=== PATIENT | female | born 1955 | race Caucasian/White ===

== ENCOUNTER 2016-05-10 19:58 | Inpatient (IN) | payer MEDICARE, SELFPAY ==
[2016-05-10 20:50] VITALS: BMI 43.4
[2016-05-10] MEDS ORDERED: ONDANSETRON HCL 4 MG/2 ML VIAL IV ONE (21:09)
[2016-05-10] MEDS ORDERED: Vancomycin HCl 0 MG in D5W 500 ML IV ONE (21:09)
[2016-05-10] MEDS ORDERED: MORPHINE 4 MG/ML INJECTION IV ONE (21:09)
[2016-05-10 21:10] LABS: AUTOMATED BASOPHIL 0.8 % (0-2); AUTOMATED EOSINOPHIL 1.6 % (0-5); AUTOMATED LYMPH 24.5 % (17-44); AUTOMATED MONOCYTE 10.3 % (3-10); AUTOMATED NEUTROPHIL 62.8 % (45-76); MPV 7.5 fL (7.4-10.4)
--- NOTE | 2016-05-10 21:21 | EDPRACDOC ---
- General Information Chief Complaint: Lower Leg Pain Stated Complaint: CELLULITIS LT LEG Time Seen by Provider: 05/10/16 21:08 Information Source: Patient Mode Of Arrival: Car Home Medications: Home Medications Albuterol Sulfate [Proair Hfa] 2 puff INH Q6H PRN 04/20/13 Furosemide [Lasix] 40 mg PO DAILY 03/30/14 Pantoprazole Sodium [Protonix] 40 mg PO BID 03/30/14 Amlodipine [Norvasc] 5 mg PO DAILY 07/07/14 Valsartan [Diovan] 160 mg PO DAILY 07/07/14 Escitalopram Oxalate [Lexapro] 10 mg PO DAILY 05/26/15 Hydrocodone/Acetaminophen [Hydrocodon-Acetaminoph 7.5-325] 1 tab PO BID PRN Lorazepam [Ativan] 1 mg PO HS PRN 05/26/15 Mometasone Furoate [Asmanex Hfa] 13 gm INH DAILY 05/26/15 Potassium Chloride 40 meq PO BID 05/26/15 Spironolactone [Aldactone] 50 mg PO DAILY 06/29/15 Dextroamphetamine/Amphetamine [Adderall Xr 20 mg Capsule] 20 mg PO DAILY Hydrocodone/Acetaminophen [Lortab 5-325 mg Tablet] 1 each PO Q4H PRN #15 tablet 05/09/16 Lipitor Unknown Dose 1 tab PO DAILY 05/09/16 Meloxicam [Mobic] 7.5 mg PO BID 05/09/16 Sulfamethoxazole/Trimethoprim [Bactrim Ds Tablet] 1 tab PO BID #14 tab 05/09/16 Allergies/Adverse Reactions: Allergies Allergy/AdvReac Type Severity Reaction Status Date / Time adhesive Allergy Rash-Locali Verified 05/10/16 20:50 zed nabumetone [From Relafen] Allergy Rash-Genera Verified 05/10/16 20:50 lized adhesive tape Allergy Rash-Genera Uncoded 05/10/16 20:50 lized - History of Present Illness Onset: YESTERDAY HPI: PT WAS SEEN HERE BY ME YESTERDAY. THE PT WAS DX'D WITH CELLULITIS. SHE RECEIVED VANCOMYCIN IV AND HAD LABS AND BLOOD CX DONE. THE PT WAS DOING WELL AND WAS D/C'D. PT SAID THAT SHE IS HAVING MORE REDNESS, PAIN, AND SWELLING. SHE SAID THE SWELLING IS GOING UP TO HER "MONKEY." Mechanism: Reports: None History of: Reports: None Severity: Reports: Moderate Able to Bear Weight: Limited Associated Signs & Symptoms: Reports: Swelling Pain In: Reports: Leg ED Past Medical History - Patient Medical History Cardiac History: Reports: Coronary Artery Disease (MILD), Hypertension, Congestive Heart Failure, Heart Attack (years ago), Cardiac Catheterization ( 2000), Hypercholesterolemia Respiratory History: Reports: Asthma, COPD GI/ History: Reports: Gastroesophageal Reflux Musculoskeletal History: Reports: Arthritis, Osteoarthritis Psychological History: Reports: Depression, Anxiety Systemic History: Reports: Cancer (ovarian), Diabetes (borderline) Surgical History: Reports: Hysterectomy, Cardiac Catheterization (2000), Hernia Surgery (left lower abd), Tonsillectomy/Adnoidectomy Date of Last Radiation Treatment: NA Date of Last Chemotherapy Date: NA - Family Medical History Reports: Hypertension (Mother,Father,Sister,Brothers), Diabetes (Mother,Father, Sister), Cancer (Father,Mother,Brother,Sisters), Stroke, Cardiac Disorders ( Father,Brother,Sister) - Social Medical History Smoking Status: Never smoker ETOH: None Substance Abuse: None Lives In: Home EDM Review of Systems - Review of Systems ROS Negative Except as Marked: Yes All systems reviewed and were negative except as marked Integumentary: Other (REDNESS TO LEFT LEG) - Physical Exam Constitutional: Alert (Awake), No apparent distress Oriented to: Time, Person, Place Last recorded Vital Signs: Last Vital Signs Temp 99.0 F 05/10/16 20:00 Pulse 110 05/10/16 20:00 Resp 20 05/10/16 20:00 BP 137/62 05/10/16 20:00 Pulse Ox 94 05/10/16 20:00 Oxygen Pulse Oxygen Saturation 94 O2 Device Room Air Oxygen Flow Rate Fraction of Inspired Oxygen ( FIO2) - HEENT Head: Normal ( normocephalic) Eye Exam: Normal (PERRL, EOMI, Sclera white) Oropharynx: Normal (Pharynx:Moist without exudate,Gums-no swelling) ENT EAC: Normal TMJ: Normal Nose: No Symptoms Reported (septum midline) Neck: Normal (FROM, trachea at midline) - Respiratory/Cardiovascular Respiratory: Normal - CTA Cardiovascular: Tachycardia - GI Auscultation: Normal (NABS) Palpation: Normal (Soft,No rebound or guarding, non distended) Tenderness: Non tender Davies's Sign: Negative - Musculoskeletal Back: Normal Extremities: Other (LLE REDNESS AND SWELLING WORSE THAN YESTERDAY. GROIN LAD ON LEFT) - Integumentary Skin: Normal Lymphatics: Adenopathy, Lymphangitis - Neurologic Memory Impaired: Normal Motor Function: Normal (Normal tone, Pulses 2+ No cyanosis or edema, FROM) Cranial Nerve: Normal (CN II-X11 intact sensation, strength 5/5) Cerebellar: Normal Mood Description: Normal Perception: Normal - Results 05/10/16 20:56 05/10/16 20:56 WBC 11.0 xk/uL (3.8-10.8) H 05/10/16 20:56 RBC 4.73 xM/uL (4.20-5.40) 05/10/16 20:56 Hgb 14.4 g/dL (12.0-16.0) 05/10/16 20:56 Hct 42.5 % (36-47) 05/10/16 20:56 MCV 90 fL (81-99) 05/10/16 20:56 MCH 30.5 pg (27-32) 05/10/16 20:56 MCHC 33.9 g/dl (33-36) 05/10/16 20:56 RDW 13.3 % (11.5-14.5) 05/10/16 20:56 Plt Count 268 xk/uL (130-400) 05/10/16 20:56 MPV 7.5 fL (7.4-10.4) 05/10/16 20:56 Neut % (Auto) 62.8 % (45-76) 05/10/16 20:56 Lymph % (Auto) 24.5 % (17-44) 05/10/16 20:56 Dickson % (Auto) 10.3 % (3-10) H 05/10/16 20:56 Eos % (Auto) 1.6 % (0-5) 05/10/16 20:56 Baso % (Auto) 0.8 % (0-2) 05/10/16 20:56 Absolute Neuts (auto) 6.82 xk/uL (1.7-8.2) 05/10/16 20:56 Absolute Lymphs (auto) 2.64 xk/uL (0.65-4.75) 05/10/16 20:56 Lab Results 05/10/16 20:56 WBC 11.0 H RBC 4.73 Hgb 14.4 Hct 42.5 MCV 90 MCH 30.5 MCHC 33.9 RDW 13.3 Plt Count 268 MPV 7.5 Neut % (Auto) 62.8 Lymph % (Auto) 24.5 Dickson % (Auto) 10.3 H Eos % (Auto) 1.6 Baso % (Auto) 0.8 Absolute Neuts (auto) 6.82 Absolute Lymphs (auto) 2.64 - EKG EKG #1 EKG Time: 22:25 -: Yes EKG interpreted by me Rate: bpm: 97 [place]: Normal Rhythm: NSR Block: None Hypertrophy: None ST: Normal - Departure Yes I personally saw and evaluated the patient. Disposition: Admit IP To This Hospital Condition: Fair Final Diagnosis: Cellulitis of left lower extremity, Failure of outpatient treatment, Poorly controlled type 2 diabetes mellitus Instructions: Managing Diabetes During Sick Days (ED), Diabetes and Exercise Education/Counseling Given To: Patient Education/Counseling Given Regarding: Diagnosis, Treatment Referrals: Queta Shi MD [Primary Care Provider] - One Week Prescriptions: No Action Albuterol Sulfate [Proair Hfa] 2 puff INH Q6H PRN PRN Reason: Shortness Of Breath Furosemide [Lasix] 40 mg PO DAILY Pantoprazole Sodium [Protonix] 40 mg PO BID Valsartan [Diovan] 160 mg PO DAILY Amlodipine [Norvasc] 5 mg PO DAILY Potassium Chloride 40 meq PO BID Lorazepam [Ativan] 1 mg PO HS PRN PRN Reason: Sleep Or Insomnia Mometasone Furoate [Asmanex Hfa] 13 gm INH DAILY Escitalopram Oxalate [Lexapro] 10 mg PO DAILY Hydrocodone/Acetaminophen [Hydrocodon-Acetaminoph 7.5-325] 1 tab PO BID PRN PRN Reason: Pain Spironolactone [Aldactone] 50 mg PO DAILY Meloxicam [Mobic] 7.5 mg PO BID Dextroamphetamine/Amphetamine [Adderall Xr 20 mg Capsule] 20 mg PO DAILY Lipitor Unknown Dose 1 tab PO DAILY Hydrocodone/Acetaminophen [Lortab 5-325 mg Tablet] 1 each PO Q4H PRN #15 tablet PRN Reason: Pain Sulfamethoxazole/Trimethoprim [Bactrim Ds Tablet] 1 tab PO BID #14 tab Forms: Patient Discharge Instructions, ED Discharge Instructions Decision to Admit Time: 22:28 Decision to admit date: 05/10/16 Decision to admit: from ED - Physician Consulted Hospitalist Provider Called: Treasure Hightower
[2016-05-10 21:26] LABS: BLOOD UREA NITROGEN 15 MG/DL (7-17); CALCIUM 9.2 MG/DL (8.4-10.2); CALCULATED OSMOLALITY 268 MOs/Kg (270-290); CHLORIDE 102 mEq/L (98-107); GLUCOSE 120 mg/dL (70-99); SODIUM LEVEL 138 mEq/L (137-146); TOTAL PROTEIN 7.9 G/DL (6.3-8.2)
[2016-05-10] MEDS ORDERED: ACETAMINOPHEN PO PRN (22:31)
[2016-05-10] MEDS ORDERED: [UNRECOGNIZED DRUG - OTHER] PO PRN (22:31)
[2016-05-10] MEDS ORDERED: ALBUTEROL 6.7 GM MDI INH PRN (22:31)
[2016-05-10] MEDS ORDERED: LORAZEPAM 1 MG TAB PO PRN (22:31)
[2016-05-10] MEDS ORDERED: HYDROCODONE PO PRN (22:31)
[2016-05-10] MEDS ORDERED: IBUPROFEN 400 MG TAB PO PRN (22:34)
[2016-05-10] MEDS ORDERED: SODIUM CHLORIDE 0.9% 3 ML FLUSH FLUSH PRN (22:34)
[2016-05-10] MEDS ORDERED: ACETAMINOPHEN 325 MG/TAB TABLET PO PRN (22:34)
[2016-05-10] MEDS ORDERED: OXYCODONE HCL 5 MG TABLET PO PRN (22:34)
[2016-05-10] MEDS ORDERED: MAGNESIUM HYDROXIDE 30 ML BOTTLE PO PRN (22:34)
[2016-05-10] MEDS ORDERED: ONDANSETRON HCL 4 MG/2 ML VIAL IV PRN (22:34)
[2016-05-10] MEDS ORDERED: Aluminum;Magnesium;Simethicone 30 ML UDC PO PRN (22:34)
[2016-05-10] MEDS ORDERED: DEXTROSE 25 GM/50 ML PFS IV PRN (22:55)
[2016-05-10] MEDS ORDERED: GLUCOSE (ORAL GEL) 15 GM TUBE PO PRN (22:55)
[2016-05-10] MEDS ORDERED: GLUCAGON 1 MG VIAL SQ PRN (22:55)
--- NOTE | 2016-05-10 22:56 | DIRPT ---
CLINICAL DATA: Left lower extremity swelling for 2 days EXAM: Left LOWER EXTREMITY VENOUS DOPPLER ULTRASOUND TECHNIQUE: Virk-scale sonography with graded compression, as well as color Doppler and duplex ultrasound were performed to evaluate the lower extremity deep venous systems from the level of the common femoral vein and including the common femoral, femoral, profunda femoral, popliteal and calf veins including the posterior tibial, peroneal and gastrocnemius veins when visible. The superficial great saphenous vein was also interrogated. Spectral Doppler was utilized to evaluate flow at rest and with distal augmentation maneuvers in the common femoral, femoral and popliteal veins. COMPARISON: None. FINDINGS: Contralateral Common Femoral Vein: Respiratory phasicity is normal and symmetric with the symptomatic side. No evidence of thrombus. Normal compressibility. Common Femoral Vein: No evidence of thrombus. Saphenofemoral Junction: No evidence of thrombus. Profunda Femoral Vein: No evidence of thrombus. Femoral Vein: No evidence of thrombus. Popliteal Vein: No evidence of thrombus. Calf Veins: No evidence of thrombus. Subcutaneous bands of edema at the hollingsworth. IMPRESSION: No evidence of left lower extremity DVT. Electronically Signed By: Avery Carvalho M.D. On: 05/10/2016 22:53
[2016-05-10] MEDS ORDERED: Vancomycin HCl 0 MG in D5W 500 ML IV SCH (23:00)
[2016-05-10] MEDS ORDERED: ENOXAPARIN 40 MG/0.4 ML PFS SQ SCH (23:00)
[2016-05-11 00:16] LABS: LEUKOCYTES/URINE NEG (NEGATIVE); NITRITE/URINE NEG (NEGATIVE); URINE OCCULT BLOOD NEG (NEG/TRACE)
[2016-05-11] MEDS: Hydrocod 7.5mg-Acetamin 325 mg/15 ml liquid PO PRN ×3 (00:30→23:32)
[2016-05-11] MEDS: NS/KCl 20 mEq 1,000 ML IV SCH ×2 (00:31→12:56)
[2016-05-11] MEDS ORDERED: Vaccine Screening Complete SCH (01:00)
[2016-05-11] MEDS: REGULAR INSULIN 100 UNITS/ML - 3 ML VIAL SQ SCH ×4 (05:04→20:19)
[2016-05-11] MEDS: SODIUM CHLORIDE 0.9% 3 ML FLUSH FLUSH SCH ×2 (05:04→18:24)
[2016-05-11] MEDS: PANTOPRAZOLE 40 MG TAB PO SCH ×2 (05:07→18:24)
[2016-05-11] MEDS ORDERED: CEFAZOLIN 1 GM in D5W 100 ML IV SCH (07:00)
[2016-05-11 07:41] LABS: AUTOMATED BASOPHIL 0.9 % (0-2); AUTOMATED EOSINOPHIL 2.4 % (0-5); AUTOMATED LYMPH 31.1 % (17-44); AUTOMATED MONOCYTE 11.2 % (3-10); AUTOMATED NEUTROPHIL 54.4 % (45-76); MPV 7.6 fL (7.4-10.4)
[2016-05-11 08:00] LABS: BLOOD UREA NITROGEN 13 MG/DL (7-17); CALCIUM 8.5 MG/DL (8.4-10.2); CALCULATED OSMOLALITY 264 MOs/Kg (270-290); CHLORIDE 103 mEq/L (98-107); GLUCOSE 105 mg/dL (70-99); SODIUM LEVEL 137 mEq/L (137-146)
[2016-05-11] MEDS: AMLODIPINE 5 MG TAB PO SCH (08:03)
[2016-05-11] MEDS: FUROSEMIDE 40 MG TAB PO SCH (08:03)
[2016-05-11] MEDS: MELOXICAM 7.5 MG TAB PO SCH ×2 (08:03→20:05)
[2016-05-11] MEDS: SPIRONOLACTONE 50 MG TAB PO SCH (08:03)
[2016-05-11] MEDS: VALSARTAN 160 MG TAB PO SCH (08:03)
[2016-05-11] MEDS: ESCITALOPRAM OXALATE 10 MG TAB PO SCH (08:04)
[2016-05-11] MEDS: Cefazolin 1gm/50 ml D5W 1 GM/50 ML RTU IV SCH ×3 (08:15→20:05)
--- NOTE | 2016-05-11 08:26 | HISTPHYS ---
- Chief Complaint PT C/O CELLULITIS ON L LOWER LEG. WAS IN ED LAST NIGHT FOR SAME THING. STATES REDNESS HAS GOTTEN WORSE TODAY. PT IS TAKING BACTRIM - History of Present Illness 60-year-old female history of diabetes presented to the ER last night complaining of cellulitis. She was given a dose of vancomycin and oral medications and discharged home. Today she had pain in her left leg and the erythema increased to the point were she could not take it anymore and she presented to the emergency department. She was evaluated with a lower extremity Doppler and that was negative for deep venous thrombosis. She was then referred to me for further evaluation and management of cellulitis which has failed outpatient therapy. She states the leg is very painful she is unable to stand on it she states that the erythema developed suddenly yesterday at about 4:30 p.m. and she had no previous warning. - Medical History Cardiac History: Reports: Coronary Artery Disease (MILD), Hypertension, Congestive Heart Failure, Heart Attack (years ago), Cardiac Catheterization ( 2000), Hypercholesterolemia Respiratory History: Reports: Asthma, COPD GI/ History: Reports: Gastroesophageal Reflux Musculoskeletal History: Reports: Arthritis, Osteoarthritis Systemic History: Reports: Cancer (ovarian), Diabetes (borderline) Psychological History: Reports: Depression, Anxiety - Surgical History Reports: Hysterectomy, Cardiac Catheterization (2000), Hernia Surgery (left lower abd), Tonsillectomy/Adnoidectomy - Medictions/Allergies Allergies adhesive Allergy (Verified 05/10/16 20:50) Rash-Localized nabumetone [From Relafen] Allergy (Verified 05/10/16 20:50) Rash-Generalized adhesive tape Allergy (Uncoded 05/10/16 20:50) Rash-Generalized Home Medications Albuterol Sulfate [Proair Hfa] 2 puff INH Q6H PRN 04/20/13 Furosemide [Lasix] 40 mg PO DAILY 03/30/14 Pantoprazole Sodium [Protonix] 40 mg PO BID 03/30/14 Amlodipine [Norvasc] 5 mg PO DAILY 07/07/14 Valsartan [Diovan] 160 mg PO DAILY 07/07/14 Escitalopram Oxalate [Lexapro] 10 mg PO DAILY 05/26/15 Hydrocodone/Acetaminophen [Hydrocodon-Acetaminoph 7.5-325] 1 tab PO BID PRN Lorazepam [Ativan] 1 mg PO HS PRN 05/26/15 Mometasone Furoate [Asmanex Hfa] 13 gm INH DAILY 05/26/15 Potassium Chloride 40 meq PO BID 05/26/15 Spironolactone [Aldactone] 50 mg PO DAILY 06/29/15 Dextroamphetamine/Amphetamine [Adderall Xr 20 mg Capsule] 20 mg PO DAILY Hydrocodone/Acetaminophen [Lortab 5-325 mg Tablet] 1 each PO Q4H PRN #15 tablet 05/09/16 Lipitor Unknown Dose 1 tab PO DAILY 05/09/16 Meloxicam [Mobic] 7.5 mg PO BID 05/09/16 Sulfamethoxazole/Trimethoprim [Bactrim Ds Tablet] 1 tab PO BID #14 tab 05/09/16 - Family History Reports: Hypertension (Mother,Father,Sister,Brothers), Diabetes (Mother,Father, Sister), Cancer (Father,Mother,Brother,Sisters), Stroke, Cardiac Disorders ( Father,Brother,Sister) - Social History Travel Outside of [place] in the Last 3 Months?: No Lives: With Family Smoking Status: Never smoker Social History: Denies: Alcohol Use - Review of Systems Yes All systems reviewed and were negative except as marked Constitutional: negative: Chills, Fever, Loss of Appetite, Weakness Respiratory: negative: Cough, Hemoptysis, Shortness of Breath, Wheezing Cardiovascular: negative: Chest Pain, Cyanosis, Orthopnea, Palpitations Gastrointestinal: No Symptoms Reported (No abdominal pain, nausea, vomiting, diarrhea, constipation, or bloody stool.) Genitourinary: No Symptoms Reported (No dysuria or hematuria.) Neurological: No Symptoms Reported (No headache, dizziness, seizures, or focal weakness.) Integumentary: Rash Allergic/Immunologic: No Symptoms Reported (no rashes or lesions) Hematologic: No Symptoms Reported (No chronic anemia, bleeding, or easy bruising.), Other (Lymphatics- no lymph node swelling or pain.) Endocrine: No Symptoms Reported (No thyroid issues, polyuria, or polydipsia.) Psychiatric: No Symptoms Reported (Fully oriented, with normal and appropriate affect.) - Physical Exam Vital Signs: Initial Vitals Temperature 99.0 F 05/10/16 20:00 Pulse Rate 110 05/10/16 20:00 Respiratory Rate 20 05/10/16 20:00 Blood Pressure 137/62 05/10/16 20:00 Pulse Oxygen Saturation 94 05/10/16 20:00 Constitutional: Alert (Awake, Fully oriented. Normal and appropriate affect.Well appearing. Well nourished.), No apparent distress Oriented to: Time, Person, Place - HEENT Head: Normal (normocephalic, atraumatic.), Other (No cervical lymphadenopathy. No supraclavicular lymphadenopathy. Neck: No palpable mass, supple , trachea midline.) Eye: Normal (pupils equal, reactive to light, and round; EOMI, Sclera white) Oropharynx: Normal (Pharynx: Moist without exudate,Gums-no swelling, No oropharyngeal lesions or erythema, Mucous membranes are dry.) Respiratory: Normal - CTA (Clear to auscultation bilaterally. No wheezing, rales , rhonchi. Chest wall movements are symmetric. No use of accessory muscles to breathe.) Cardiovascular: Normal (RRR , Normal S1, S2. No murmurs, rubs, or gallops. PMI non-displaced. Carotids: no carotid bruits. No bradycardia or tachycardia. DP pulses 2+ bilaterally.) - GI Auscultation: Normal (normal active sounds) Palpation: Normal (Soft,non distended,nontender. No hepatosplenomegaly.) Tenderness: Non tender (No rebound or guarding) Davies's Sign: Negative - Musculoskeletal Back: Normal (Non-Tender) Extremities: Normal (Normal tone, DP pulses 2+ bilaterally, No cyanosis or edema bilaterally, FROM bilaterally.) - Integumentary Skin: Rash (In the anterior portion of the left lower leg with areas of erythema in the groin as well) Lymphatics: Normal (No cervical lymphadenopathy. No supraclavicular lymphadenopathy.) - Neurologic Memory Impaired: Normal Motor Function: Normal (Motor 5/5 throughout.Normal tone, Pulses 2+ No cyanosis or edema, FROM) Cranial Nerve: Normal (CN II-XII intact sensation, strength 5/5) Cerebellar: Normal (Babinski: toes downgoing bilaterally. Intact Finger to nose. Sensory grossly intact to light touch. Intact rapid alternating movements bilaterally. No pronator drift.) Mood Description: Normal (Fully oriented. Normal and appropriate affect.) Perception: Normal (Normal and appropriate affect.) - Focused CV Perfusion Exam Vital Signs: Last Vital Signs Temp 99.0 F 05/10/16 20:00 Pulse 111 05/10/16 21:30 Resp 20 05/10/16 21:30 BP 121/64 05/10/16 21:30 Pulse Ox 94 05/10/16 21:30 - Lab Results Laboratory Results - last 24 hr 05/10/16 05/10/16 20:56 20:56 WBC 11.0 H RBC 4.73 Hgb 14.4 Hct 42.5 MCV 90 MCH 30.5 MCHC 33.9 RDW 13.3 Plt Count 268 MPV 7.5 Neut % (Auto) 62.8 Lymph % (Auto) 24.5 [place] % (Auto) 10.3 H Eos % (Auto) 1.6 Baso % (Auto) 0.8 Absolute Neuts (auto) 6.82 Absolute Lymphs (auto) 2.64 Sodium 138 Potassium 4.1 Chloride 102 Carbon Dioxide 23 Anion Gap 17 H BUN 15 Creatinine 0.90 Estimated GFR (MDRD) > 60 Glucose 120 H Calculated Osmolality 268 L Calcium 9.2 Total Bilirubin 0.6 AST 20 ALT 29 Alkaline Phosphatase 58 Total Protein 7.9 Albumin 4.5 - Diagnostic Findings EXAM: Left LOWER EXTREMITY VENOUS DOPPLER ULTRASOUND TECHNIQUE: Virk-scale sonography with graded compression, as well as color Doppler and duplex ultrasound were performed to evaluate the lower extremity deep venous systems from the level of the common femoral vein and including the common femoral, femoral, profunda femoral, popliteal and calf veins including the posterior tibial, peroneal and gastrocnemius veins when visible. The superficial great saphenous vein was also interrogated. Spectral Doppler was utilized to evaluate flow at rest and with distal augmentation maneuvers in the common femoral, femoral and popliteal veins. COMPARISON: None. FINDINGS: Contralateral Common Femoral Vein: Respiratory phasicity is normal and symmetric with the symptomatic side. No evidence of thrombus. Normal compressibility. Common Femoral Vein: No evidence of thrombus. Saphenofemoral Junction: No evidence of thrombus. Profunda Femoral Vein: No evidence of thrombus. Femoral Vein: No evidence of thrombus. Popliteal Vein: No evidence of thrombus. Calf Veins: No evidence of thrombus. Subcutaneous bands of edema at the [place]oll[place]. IMPRESSION: No evidence of left lower extremity DVT. Electronically Signed By: Avery Carvalho M.D. On: 05/10/2016 22:53 - Assessment (1) Cellulitis of left lower extremity L03.116 - CELLULITIS OF LEFT LOWER LIMB Acute Present on Admission: Yes Patient with cellulitis of the lower extremity. She has a long history of drug resistant organisms. She is MSSA positive in the past will start her on vancomycin pending MRSA screen. (2) Failure of outpatient treatment Z78.9 - OTHER SPECIFIED HEALTH STATUS Acute Present on Admission: Yes Patient took medications for 2 yesterday and today did not have any relief or improvement symptoms in fact they worsens (3) Poorly controlled type 2 diabetes mellitus E11.65 - TYPE 2 DIABETES MELLITUS WITH HYPERGLYCEMIA Acute Present on Admission: Yes Continue home care. Of note patient is not on any medications at home for her diabetes will check fingersticks and monitor closely. (4) Leukocytosis D72.829 - ELEVATED WHITE BLOOD CELL COUNT, UNSPECIFIED Acute Present on Admission: Yes Qualifiers: Leukocytosis type: bandemia Qualified Code(s): D72.825 - Bandemia Looks mostly like a de margination from acute phase reaction. But will monitor closely. - Plan Admit, IV vancomycin monitor results closely I have asked nursing to marked the leg. Case Care Discussed with: Patient, Nursing Staff Total Time: 55 minutes Critical Care: No Couseling Time (>50% in counseling/coordination): No <Electronically signed by Treasure Hightower MD> 05/10/16 [id number] MTDD
[2016-05-11] MEDS ORDERED: Non-Formulary Medication ITEM (Potassium Chloride [Potassium Chloride] 40 MEQ) PO SCH (09:00)
[2016-05-11] MEDS ORDERED: AMPHETAMINE PO SCH (09:00)
[2016-05-11] MEDS ORDERED: VALSARTAN 160 MG PO SCH (09:00)
[2016-05-11] MEDS ORDERED: DEXTROAMPHETAMINE PO SCH (09:00)
[2016-05-11] MEDS ORDERED: [UNRECOGNIZED DRUG - OTHER] PO SCH (09:00)
[2016-05-11] MEDS ORDERED: MOMETASONE FUROATE INH SCH (09:00)
[2016-05-11] MEDS ORDERED: ESCITALOPRAM OXALATE 10 MG PO SCH (09:00)
[2016-05-11] MEDS: BUDESONIDE 0.5 MG NEB NEB SCH ×2 (09:57→20:11)
--- NOTE | 2016-05-11 11:39 | GENMEDPROG ---
Chief Complaint: cellulitis, DM-2, leukocytosis, obesity Current Medication List: Reviewed - Physical Examination Vital Signs and I&O: Last Vital Signs Temp 98.8 F 05/11/16 06:00 Pulse 87 05/11/16 06:00 Resp 18 05/11/16 06:00 BP 114/53 L 05/11/16 06:00 Pulse Ox 92 05/11/16 10:01 Oxygen Pulse Oxygen Saturation 92 O2 Device Room Air Oxygen Flow Rate 2 Fraction of Inspired Oxygen ( FIO2) Intake & Output 05/08/16 05/09/16 05/10/16 05/11/16 23:59 23:59 23:59 23:59 Intake Total 250 1106 Output Total 1300 Balance 250 -194 Patient's weight 118.104 kg General: Alert, Oriented x3, Cooperative, No acute distress HEENT: Normal, PERRLA, EOMI, Anicteric Sclera, Mucous membr. moist/pink Neck: Full range of motion, Normal Trachea alignment, Normal inspection, No Masses palpable, No Thyromegaly palpable Lymphatics: Normal (No cervical lymphadenopathy. No supraclavicular lymphadenopathy.) Respiratory: Normal - CTA (Clear to auscultation bilaterally. No wheezing, rales , rhonchi. Chest wall movements are symmetric. No use of accessory muscles to breathe.) Cardiovascular: Regular rate and rhythm, Normal S1, Normal S2 GI: Normal bowel sounds, Soft, Non tender, Obese Extremities/Musculoskeletal: Normal pulses, DJD, Other (rash , redness and induration of left lower extremitiy) Skin: Warm,Dry and Intact, Rash (LLE), Erythema (LLE) Neurological: Normal speech, Normal tone, Cranial nerves 3-12 NL Psych/Mental Status: Appropriate, Normal Affect, Cooperative Lab/DI/Studies Reviewed: Laboratory Tests 05/11/16 05/11/16 06:28 06:28 WBC 8.6 Hgb 12.4 D Hct 36.6 Plt Count 244 Sodium 137 Potassium 4.0 Chloride 103 Carbon Dioxide 24 Anion Gap 14 BUN 13 Creatinine 0.90 Estimated GFR (MDRD) > 60 Glucose 105 H Calculated Osmolality 264 L Calcium 8.5 Magnesium 1.60 - Assessment (1) Cellulitis of left lower extremity Acute L03.116 - CELLULITIS OF LEFT LOWER LIMB Comment/Plan: Patient with cellulitis of the lower extremity. She has a long history of drug resistant organisms. She is MSSA positive in the past will start her on vancomycin pending MRSA screen. (2) Poorly controlled type 2 diabetes mellitus Acute E11.65 - TYPE 2 DIABETES MELLITUS WITH HYPERGLYCEMIA Comment/Plan: Continue home care. Of note patient is not on any medications at home for her diabetes will check fingersticks and monitor closely. (3) Leukocytosis Acute D72.829 - ELEVATED WHITE BLOOD CELL COUNT, UNSPECIFIED Qualifiers: Leukocytosis type: bandemia Qualified Code(s): D72.825 - Bandemia Comment/Plan: Looks mostly like a de margination from acute phase reaction. But will monitor closely. (4) Failure of outpatient treatment Acute Z78.9 - OTHER SPECIFIED HEALTH STATUS Comment/Plan: Patient took medications for 2 yesterday and today did not have any relief or improvement symptoms in fact they worsens Case Care Discussed with: Patient Education/Counseling Given To: Patient Education/Counseling Given Regarding: Diagnosis, Treatment, Prognosis Critical Care: No Couseling Time (>50% in counseling/coordination): No Code: [id number] (09-16)
[2016-05-11] MEDS: POTASSIUM CHLORIDE 20 MEQ TAB PO SCH ×2 (11:54→17:57)
[2016-05-11] MEDS: ATORVASTATIN 10 MG TAB PO SCH (20:05)
[2016-05-11] MEDS: ENOXAPARIN 60 MG/0.6 ML PFS SQ SCH (23:19)
[2016-05-12] MEDS ORDERED: NS 250 ML IV ONE (02:31)
[2016-05-12] MEDS: Cefazolin 1gm/50 ml D5W 1 GM/50 ML RTU IV SCH ×6 (02:38→18:32)
[2016-05-12] MEDS: SODIUM CHLORIDE 0.9% 3 ML FLUSH FLUSH SCH ×2 (05:42→17:32)
[2016-05-12] MEDS: PANTOPRAZOLE 40 MG TAB PO SCH ×2 (05:43→17:32)
[2016-05-12 06:03] LABS: AUTOMATED BASOPHIL 0.7 % (0-2); AUTOMATED LYMPH 27.8 % (17-44); AUTOMATED MONOCYTE 9.2 % (3-10); AUTOMATED NEUTROPHIL 59.3 % (45-76); MPV 7.5 fL (7.4-10.4)
[2016-05-12 06:14] LABS: BLOOD UREA NITROGEN 17 MG/DL (7-17); CALCIUM 9.4 MG/DL (8.4-10.2); CALCULATED OSMOLALITY 273 MOs/Kg (270-290); CHLORIDE 107 mEq/L (98-107); GLUCOSE 145 mg/dL (70-99); SODIUM LEVEL 139 mEq/L (137-146)
[2016-05-12] MEDS: REGULAR INSULIN 100 UNITS/ML - 3 ML VIAL SQ SCH ×4 (06:16→22:09)
[2016-05-12] MEDS: SPIRONOLACTONE 50 MG TAB PO SCH (07:57)
[2016-05-12] MEDS: VALSARTAN 160 MG TAB PO SCH (07:57)
[2016-05-12] MEDS: FUROSEMIDE 40 MG TAB PO SCH (07:57)
[2016-05-12] MEDS: ESCITALOPRAM OXALATE 10 MG TAB PO SCH (07:57)
[2016-05-12] MEDS: AMLODIPINE 5 MG TAB PO SCH (07:58)
[2016-05-12] MEDS: MELOXICAM 7.5 MG TAB PO SCH ×2 (07:58→21:46)
[2016-05-12] MEDS: BUDESONIDE 0.5 MG NEB NEB SCH ×2 (08:17→19:45)
[2016-05-12] MEDS: POTASSIUM CHLORIDE 20 MEQ TAB PO SCH ×2 (12:54→17:31)
[2016-05-12] MEDS: Hydrocod 7.5mg-Acetamin 325 mg/15 ml liquid PO PRN (12:55)
--- NOTE | 2016-05-12 14:51 | GENMEDPROG ---
Chief Complaint: cellulitis of leg, DM-2, obesity, failed outpatient treatment Currently: Reports: Other (rash improving). Denies: Ambulating - Physical Examination Vital Signs and I&O: Last Vital Signs Temp 98.1 F 05/12/16 13:14 Pulse 80 05/12/16 13:14 Resp 20 05/12/16 13:14 BP 105/59 L 05/12/16 13:14 Pulse Ox 93 05/12/16 13:14 Oxygen Pulse Oxygen Saturation 93 O2 Device Room Air Oxygen Flow Rate 2 Fraction of Inspired Oxygen ( FIO2) Intake & Output 05/09/16 05/10/16 05/11/16 05/12/16 23:59 23:59 23:59 23:59 Intake Total 250 0171 1143 Output Total 3600 1950 Balance 250 -7850 -918 Patient's weight 118.104 kg General: Alert, Oriented x3, Cooperative, No acute distress, Obese HEENT: Normal, PERRLA, EOMI, Anicteric Sclera, Mucous membr. moist/pink Neck: Full range of motion, Normal Trachea alignment, Normal inspection, No Masses palpable, No Thyromegaly palpable Lymphatics: Normal (No cervical lymphadenopathy. No supraclavicular lymphadenopathy.) Respiratory: Normal - CTA (Clear to auscultation bilaterally. No wheezing, rales , rhonchi. Chest wall movements are symmetric. No use of accessory muscles to breathe.) Cardiovascular: Regular rate and rhythm, Normal S1, Normal S2 GI: Normal bowel sounds, Soft, Non tender, Obese Extremities/Musculoskeletal: Normal pulses, DJD, Other (rash , redness and induration of left lower extremitiy) Skin: Warm,Dry and Intact, Rash (LLE), Erythema (faint rash, with minimal induration and scattered erythema LLE) Neurological: Normal speech, Normal tone, Cranial nerves 3-12 NL Psych/Mental Status: Appropriate, Normal Affect, Cooperative - Assessment (1) Cellulitis of left lower extremity Acute L03.116 - CELLULITIS OF LEFT LOWER LIMB Comment/Plan: Patient with cellulitis of the lower extremity. She has a long history of drug resistant organisms. She is MSSA positive in the past - Currently her first set of blood cultures is negative. Nares negative for MRSA. She is on Cefazolin 1 g IV q 8H. Doing well. (2) Poorly controlled type 2 diabetes mellitus Acute E11.65 - TYPE 2 DIABETES MELLITUS WITH HYPERGLYCEMIA Comment/Plan: Continue home care. Of note: patient is not on any medications at home for her diabetes, will check fingersticks and monitor closely. Sugars range 100-177. Start metformin. (3) Leukocytosis Acute D72.829 - ELEVATED WHITE BLOOD CELL COUNT, UNSPECIFIED Qualifiers: Leukocytosis type: bandemia Qualified Code(s): D72.825 - Bandemia Comment/Plan: Looks mostly like a de margination from acute phase reaction. But will monitor closely. (4) Failure of outpatient treatment Acute Z78.9 - OTHER SPECIFIED HEALTH STATUS Comment/Plan: Patient took medications for 2 yesterday and today did not have any relief or improvement symptoms in fact they worsens
[2016-05-12] MEDS: ENOXAPARIN 60 MG/0.6 ML PFS SQ SCH (17:29)
[2016-05-12] MEDS: ATORVASTATIN 10 MG TAB PO SCH (21:46)
[2016-05-13] MEDS: Cefazolin 1gm/50 ml D5W 1 GM/50 ML RTU IV SCH ×2 (01:55→06:45)
[2016-05-13] MEDS: SODIUM CHLORIDE 0.9% 3 ML FLUSH FLUSH SCH (04:57)
[2016-05-13 06:43] VITALS: BP 104/60; PULSE 83; TEMP 97.6
[2016-05-13] MEDS: PANTOPRAZOLE 40 MG TAB PO SCH (06:45)
[2016-05-13] MEDS: REGULAR INSULIN 100 UNITS/ML - 3 ML VIAL SQ SCH (06:45)
[2016-05-13] MEDS ORDERED: MetFORMIN, EXT REL 500 MG TAB PO SCH (07:00)
[2016-05-13 07:09] LABS: AUTOMATED BASOPHIL 0.9 % (0-2); AUTOMATED EOSINOPHIL 2.9 % (0-5); AUTOMATED LYMPH 29.4 % (17-44); AUTOMATED MONOCYTE 9.6 % (3-10); AUTOMATED NEUTROPHIL 57.2 % (45-76); MPV 6.9 fL (7.4-10.4)
[2016-05-13 07:27] LABS: BLOOD UREA NITROGEN 18 MG/DL (7-17); CALCIUM 9.5 MG/DL (8.4-10.2); CALCULATED OSMOLALITY 273 MOs/Kg (270-290); CHLORIDE 103 mEq/L (98-107); GLUCOSE 137 mg/dL (70-99); SODIUM LEVEL 140 mEq/L (137-146)
--- NOTE | 2016-05-13 08:36 | PCM.DCS92 ---
- Final/Secondary Discharge Diagnosis (1) Cellulitis of left lower extremity Acute L03.116 - CELLULITIS OF LEFT LOWER LIMB Present on Admission: Yes Comment: Patient with cellulitis of the lower extremity. She has a long history of drug resistant organisms. She is MSSA positive in the past - Currently her first set of blood cultures is negative. Nares negative for MRSA. She is on Cefazolin 1 g IV q 8H. Doing well. Rash is significantly improved, will continue treatment as outpatient with PO antibiotics. (2) Poorly controlled type 2 diabetes mellitus Acute E11.65 - TYPE 2 DIABETES MELLITUS WITH HYPERGLYCEMIA Present on Admission: Yes Comment: Continue home care. Of note: patient was not on any medications at home for her diabetes, will add metformin, check fingersticks and monitor closely. Sugars range 100-177. This is likely why she has taken so long to heal. (3) Leukocytosis Resolved D72.829 - ELEVATED WHITE BLOOD CELL COUNT, UNSPECIFIED Present on Admission: Yes bandemia D72.825 - Bandemia Comment: Looks like an acute phase reaction. Resolved. (4) Failure of outpatient treatment Acute Z78.9 - OTHER SPECIFIED HEALTH STATUS Present on Admission: Yes Comment: Patient took medications for 2 days prior to admission& reported she did not have any relief or improvement symptoms. Discharge Disposition: Home Discharge Condition: Improved Cognitive Discharge Status: Unimpaired Fuctional Discharge Status: Independent Forms: Patient Discharge Instructions Physician Follow up/Referrals: Queta Shi MD [Primary Care Provider] - One Week Home Medications / New Prescriptions: New Cephalexin Monohydrate [Keflex] 500 mg PO Q8H #30 cap MetFORMIN, Extended Release [Glucophage Xr] 500 mg PO DAILY@0700 #30 tablet Continue Albuterol Sulfate [Proair Hfa] 2 puff INH Q6H PRN PRN Reason: Shortness Of Breath Furosemide [Lasix] 40 mg PO DAILY Pantoprazole Sodium [Protonix] 40 mg PO BID Valsartan [Diovan] 160 mg PO DAILY Amlodipine [Norvasc] 5 mg PO DAILY Potassium Chloride 40 meq PO BID Lorazepam [Ativan] 1 mg PO HS PRN PRN Reason: Sleep Or Insomnia Mometasone Furoate [Asmanex Hfa] 13 gm INH DAILY Escitalopram Oxalate [Lexapro] 10 mg PO DAILY Hydrocodone/Acetaminophen [Hydrocodon-Acetaminoph 7.5-325] 1 tab PO BID PRN PRN Reason: Pain Spironolactone [Aldactone] 50 mg PO DAILY Meloxicam [Mobic] 7.5 mg PO BID Dextroamphetamine/Amphetamine [Adderall Xr 20 mg Capsule] 20 mg PO DAILY Atorvastatin Calcium [Lipitor] 10 mg PO QHS Hydrocodone/Acetaminophen [Lortab 5-325 mg Tablet] 1 each PO Q4H PRN #15 tablet PRN Reason: Pain Discontinued Sulfamethoxazole/Trimethoprim [Bactrim Ds Tablet] 1 tab PO BID #14 tab O2 Device: Room Air Diet at Discharge: Heart Healthy, Diabetic, 1800 Calorie Activity: As Tolerated (elevate legs) Call Office For: Worsening Symptoms, Fever over 101 F, Pain Uncontrolled By Meds Discontinue use of:: Alcohol, All Types of Tobacco - DC Summary Notes Hospital Course Note:: Discharge summary on patient named SUDHA STILES admitted to [facility] on 05/10/16 by Treasure Hightower MD. Date of discharge is [05/13/16]. Sudha Stiles is a 60-year-old female history of diabetes presented to the ER last night complaining of cellulitis. She was given a dose of vancomycin and oral medications and discharged home. Today she had pain in her left leg and the erythema increased to the point were she could not take it anymore and she presented to the emergency department. She was evaluated with a lower extremity Doppler and that was negative for deep venous thrombosis. [facility] was then [facility] and management of cellulitis which has failed outpatient therapy. She states the leg is very painful she is unable to stand on it she states that the erythema developed suddenly yesterday at about 4:30 p.m. and she had no previous warning. She was admitted for IV antibiotics. Blood cultures were drawn, and she was started on IV vancomycin, but this was discontinued when her MRSA swab was negative. She was changed to Cefalexin 1 g IV q 8 hr. The patient has done well with this and her leg is greatly improved, all the redness is virtually resolved at the time of discharge. She will continue on Keflex 500 mg PO for another 10 days. She is encouraged to elevate her legs for 2 hours every after noon. She will follow- up with Dr. Shi in 1-2 weeks. Code: 13443 (>30min.) - Physical Exam Vital Signs: Last Vital Signs Temp 97.6 F 05/13/16 06:42 Pulse 83 05/13/16 06:42 Resp 18 05/13/16 06:42 BP 104/60 05/13/16 06:42 Pulse Ox 93 05/13/16 06:42 Oxygen Pulse Oxygen Saturation 93 O2 Device Room Air Oxygen Flow Rate 2.5 Fraction of Inspired Oxygen ( FIO2) Constitutional: Alert (Awake, Fully oriented. Normal and appropriate affect.Well appearing. Well nourished.), No apparent distress Oriented to: Time, Person, Place - HEENT Head: Normal (normocephalic, atraumatic.), Other (No cervical lymphadenopathy. No supraclavicular lymphadenopathy. Neck: No palpable mass, supple , trachea midline.) Eye: Normal (pupils equal, reactive to light, and round; EOMI, Sclera white) Oropharynx: Normal (Pharynx: Moist without exudate,Gums-no swelling, No oropharyngeal lesions or erythema, Mucous membranes are dry.) Tympanic Membrane: Normal ENT EAC: Normal TMJ: Normal Nose: No Symptoms Reported - Respiratory/Cardiovascular Respiratory: Normal - CTA (Clear to auscultation bilaterally. No wheezing, rales , rhonchi. Chest wall movements are symmetric. No use of accessory muscles to breathe.) Cardiovascular: Normal - GI Auscultation: Normal (normal active sounds) Palpation: Normal (Soft,non distended,nontender. No hepatosplenomegaly.) Tenderness: Non tender (No rebound or guarding) Davies's Sign: Negative Rectal Exam: Deferred - Musculoskeletal Back: Normal (Non-Tender) Extremities: Normal (Normal tone, DP pulses 2+ bilaterally, No cyanosis or edema bilaterally, FROM bilaterally.), Other (MINIMAL RESIDUAL RASH ON LLE) - Integumentary Skin: Rash (RESOLVING -LLE- HAS MINIMAL RESIDUAL) Lymphatics: Normal (No cervical lymphadenopathy. No supraclavicular lymphadenopathy.) - Neurologic Memory Impaired: Normal Motor Function: Normal Cranial Nerve: Normal Cerebellar: Normal (Babinski: toes downgoing bilaterally. Intact Finger to nose. Sensory grossly intact to light touch. Intact rapid alternating movements bilaterally. No pronator drift.) Mood Description: Normal (Fully oriented. Normal and appropriate affect.) Thought: Coherent Perception: Normal (Normal and appropriate affect.)
[2016-05-13] MEDS: SPIRONOLACTONE 50 MG TAB PO SCH (08:45)
[2016-05-13] MEDS: FUROSEMIDE 40 MG TAB PO SCH (08:46)
[2016-05-13] MEDS: VALSARTAN 160 MG TAB PO SCH (08:46)
[2016-05-13] MEDS: ESCITALOPRAM OXALATE 10 MG TAB PO SCH (08:46)
[2016-05-13] MEDS: MELOXICAM 7.5 MG TAB PO SCH (08:46)
[2016-05-13] MEDS: AMLODIPINE 5 MG TAB PO SCH (08:47)
[2016-05-13] MEDS: BUDESONIDE 0.5 MG NEB NEB SCH (09:00)
== END 2016-05-13 11:34 | disposition home or self-care (01) | DRG 603 ==
LOC: ED 19:58 → MPS3 22:34
PROVIDERS: ADMIT Hospitalist; ATTEND Family Medicine
PROC: B54CZZZ Ultrasonography of Left Lower Extremity Veins (ICD-10-PCS; principal; 2016-05-10)
DX: L03.116 Cellulitis of left lower limb (principal); I11.0 Hypertensive heart disease with heart failure; I50.9 Heart failure, unspecified; Z68.41 Body mass index [BMI] 40.0-44.9, adult; E11.65 Type 2 diabetes mellitus with hyperglycemia; I25.10 Atherosclerotic heart disease of native coronary artery without angina pectoris; E78.00 Pure hypercholesterolemia, unspecified; J45.909 Unspecified asthma, uncomplicated; J44.9 Chronic obstructive pulmonary disease, unspecified; K21.9 Gastro-esophageal reflux disease without esophagitis; M19.90 Unspecified osteoarthritis, unspecified site; E66.9 Obesity, unspecified; F41.9 Anxiety disorder, unspecified; F32.9 Major depressive disorder, single episode, unspecified; Z85.43 Personal history of malignant neoplasm of ovary; I25.2 Old myocardial infarction; Z90.710 Acquired absence of both cervix and uterus; Z88.8 Allergy status to other drugs, medicaments and biological substances; Z91.048 Other nonmedicinal substance allergy status
CPT/HCPCS: 80048; 80053; 81001; 82043; 82962; 83036; 83735; 84484; 85025; 87040; 87641; 93005; 94640; 94660; 96372; 99284; G0237; J0690; J1650; J2270; J2405; J3370; J3490; J7040; J7060